=== PATIENT | female | born 1985 | race Caucasian/White ===

== ENCOUNTER 2019-05-17 12:26 | Inpatient (IN) | payer OTHER ==
[~2019-05-17] VITALS: Ht 162.6 cm; Wt 2.7 kg
[2019-06-09] MEDS ORDERED: PRENATAL TABLE1 EAC3 (11:51)
== END 2019-06-12 14:07 | DRG 788 ==
LOC: LDR 06-09 09:37 → OB/GYN 06-09 09:37 → O/R 06-09 09:37 → LDR 06-09 12:23 → O/R 06-09 14:34 → OB/GYN 06-09 15:55
PROVIDERS: ADMIT Obstetrics & Gynecology
PROC: 4A033R1 Measurement of Arterial Saturation, Peripheral, Percutaneous Approach (ICD-10-PCS; 2019-06-09)
PROC: 4A1HXCZ Monitoring of Products of Conception, Cardiac Rate, External Approach (ICD-10-PCS; 2019-06-09)
PROC: 10D00Z1 Extraction of Products of Conception, Low, Open Approach (ICD-10-PCS; principal; 2019-06-09 14:00)
DX: O44.03 Complete placenta previa NOS or without hemorrhage, third trimester (principal); Z3A.37 37 weeks gestation of pregnancy; Z37.0 Single live birth